=== PATIENT | male | born 1995 | race Caucasian/White ===

== ENCOUNTER 2019-03-30 18:58 | Emergency (ER) | payer MEDICAID, OTHER ==
[~2019-03-30] VITALS: Ht 170.2 cm; Wt 77.3 kg
[2019-03-30 19:01] VITALS: BP 155/79
--- NOTE | 2019-03-30 19:56 | NUR ---
PT TAKEN TO BED 4.
--- NOTE | 2019-03-30 20:19 | NUR ---
Dr. Andino evaluating patient at bedside.
[2019-03-30] MEDS ORDERED: LIDOCAINE VISCOUS 2% 20 ML UDC PO ONE (20:25)
[2019-03-30] MEDS ORDERED: KETOROLAC 30 MG/ML VIAL IM ONE (20:25)
--- NOTE | 2019-03-30 20:29 | NUR ---
PT C/O SORE THROAT 7 DAYS. PT WENT TO URGENT CARE 3 DAYS AGO AND WAS DIAGNOSED WITH TONSILITIS, WAS GIVEN AMOXICILLIN AND NAPROSYN. PT STATES PAIN HAS BEEN GETTING WORSE AND HE WAS UNABLE TO EAT TODAY. AIRWAY PATENT, VOICE CLEAR. FEVER ON SATURDAY, SATURDAY, AND SATURDAY. N/V ON SATURDAY. DENIES DIARRHEA; SKIN IS PINK/WARM/DRY; LUNGS CLEAR BL; HR EVEN AND REGULAR; PT DENIES ANY CP, SOB, OR COUGH AT THIS TIME; PATIENT STATES PAIN OF 10/10 AT THIS TIME; VSS; PATIENT POSITIONED FOR COMFORT; HOB ELEVATED; BEDRAILS UP X1; BED DOWN. ER MD MADE AWARE OF PT STATUS.
[2019-03-30 20:39] VITALS: BP 145/81
--- NOTE | 2019-03-30 20:40 | NUR ---
Patient discharged with v/s stable. Written and verbal after care instructions given and explained. Patient alert, oriented and verbalized understanding of instructions. Ambulatory with steady gait. All questions addressed prior to discharge. ID band removed. Patient advised to follow up with PMD. Rx of Lidocaine Hydrochloride and [place] given. Patient educated on indication of medication including possible reaction and side effects. Opportunity to ask questions provided and answered.
== END 2019-03-30 20:40 | disposition home or self-care (01) ==
LOC: MED 18:58
DX: J02.8 Acute pharyngitis due to other specified organisms (principal); B97.89 Other viral agents as the cause of diseases classified elsewhere; G40.909 Epilepsy, unspecified, not intractable, without status epilepticus; F17.200 Nicotine dependence, unspecified, uncomplicated
CPT/HCPCS: 96372; 99283; J1885

== ENCOUNTER 2022-09-02 16:12 | Emergency (ER) | payer OTHER ==
[~2022-09-02] VITALS: Ht 172.7 cm; Wt 79.9 kg
[2022-09-02 16:52] VITALS: BP 127/62
--- NOTE | 2022-09-02 17:04 | NUR ---
COVID, FLU, STREP A SWABS DONE.
--- NOTE | 2022-09-02 17:04 | NUR ---
C/O SORE THROAT X LAST NIGHT, COUGH X 2 DAYS. LAST SEIZURE 3 YEARS AGO. PMH: SEIZURE MED: DIVALPROEX
[2022-09-02] MEDS ORDERED: BENZ-300 PO (18:53)
[2022-09-02] MEDS ORDERED: IBUP-2213 PO (18:53)
[2022-09-02] MEDS ORDERED: PROM118S5 PO (18:53)
--- NOTE | 2022-09-02 20:05 | NUR ---
SEEN AND EXAMINED BY PA
[2022-09-02 20:25] VITALS: BP 119/79
--- NOTE | 2022-09-02 20:25 | NUR ---
Patient discharged with v/s stable. Written and verbal after care instructions given and explained. Patient alert, oriented and verbalized understanding of instructions. Ambulatory with steady gait. All questions addressed prior to discharge. ID band removed. Patient advised to follow up with PMD. Rx of CEPACOL. IBUPROFEN, PROMETHEZINE given. Patient educated on indication of medication including possible reaction and side effects. Opportunity to ask questions provided and answered.
== END 2022-09-02 20:25 | disposition home or self-care (01) ==
LOC: MED 16:12
DX: U07.1 COVID-19 (principal)
CPT/HCPCS: 87081; 99283

== ENCOUNTER 2023-11-16 14:38 | Emergency (ER) | payer OTHER ==
[~2023-11-16] VITALS: Ht 172.7 cm; Wt 79.4 kg
[~2023-11-16 14:38] MED LIST: BENZ-300 PO; IBUP-2213 PO; PROM118S5 PO
[2023-11-16 14:56] VITALS: BP 128/74; PULSE 86; RESP 16; TEMP 98.1; O2SAT 98
[2023-11-16] MEDS ORDERED: IBUP-2213 PO (18:27)
[2023-11-16] MEDS ORDERED: ACET-503 PO (18:27)
[2023-11-16 18:38] VITALS: BP 125/76; PULSE 78; RESP 16; TEMP 98; O2SAT 98
== END 2023-11-16 18:40 | disposition home or self-care (01) ==
LOC: MED 14:38
DX: S90.31XA Contusion of right foot, initial encounter (principal); X58.XXXA Exposure to other specified factors, initial encounter; Y93.89 Activity, other specified; Y92.89 Other specified places as the place of occurrence of the external cause; Y99.8 Other external cause status
CPT/HCPCS: 73630; 99283